=== PATIENT | male | born 1965 | race Two or more races ===

== ENCOUNTER 2021-05-16 06:38 | Day surgery (SDC) | payer OTHER ==
[~2021-05-16 06:38] MED LIST: ETODOLAC500 MG PO; FAMOTIDINE40 MG PO; OMEPRAZOLE20 M2 PO; PROTONIX40 MG PO; ZESTRIL10 M1 PO
[2021-05-16] MEDS ORDERED: PERCOCET 5-3251 EACH PO (10:19)
== END 2021-05-16 15:00 | disposition home or self-care (01) ==
LOC: CIR.AMB 06:38
PROVIDERS: ATTEND Surgery
DX: K60.3 Anal fistula (principal)

== ENCOUNTER 2021-09-26 05:46 | Day surgery (SDC) | payer OTHER ==
[~2021-09-26] VITALS: Ht 170.2 cm; Wt 88.9 kg
[~2021-09-26 05:46] MED LIST changes: +PERCOCET 5-3251 EACH PO
[2021-09-26] MEDS ORDERED: PERCOCET 5-3251 EACH PO (12:45)
== END 2021-09-26 15:40 | disposition home or self-care (01) ==
LOC: CIR.AMB 05:46
PROVIDERS: ATTEND Surgery
DX: K60.3 Anal fistula (principal); K62.89 Other specified diseases of anus and rectum; Z20.822 Contact with and (suspected) exposure to COVID-19; I10 Essential (primary) hypertension; Z88.0 Allergy status to penicillin

== ENCOUNTER 2022-11-13 06:28 | Day surgery (SDC) | payer OTHER ==
[2022-11-13] MEDS ORDERED: OXYC1TAB9 PO (11:27)
== END 2022-11-13 20:05 | disposition home or self-care (01) ==
LOC: CIR.AMB 06:28
PROVIDERS: ATTEND Surgery
DX: K60.3 Anal fistula (principal); K62.89 Other specified diseases of anus and rectum; K62.5 Hemorrhage of anus and rectum; Z20.822 Contact with and (suspected) exposure to COVID-19